=== PATIENT | female | born 1990 | race Asian ===

== ENCOUNTER 2017-12-11 00:37 | Emergency (ER) | payer OTHER ==
[~2017-12-11] VITALS: Ht 175.3 cm; Wt 101.6 kg
[2017-12-11 00:54] VITALS: BP 128/72; TEMP 98.2
== END 2017-12-11 01:11 | disposition home or self-care (01) ==
LOC: ED 00:37
DX: Z32.00 Encounter for pregnancy test, result unknown (principal)
CPT/HCPCS: 99281

== ENCOUNTER 2017-12-11 01:06 | Emergency (ER) | payer OTHER ==
[~2017-12-11] VITALS: Ht 175.3 cm; Wt 101.6 kg
[2017-12-11 01:25] VITALS: BP 118/57; TEMP 98.7
== END 2017-12-11 01:46 | disposition home or self-care (01) ==
LOC: ED 01:06
DX: Z32.00 Encounter for pregnancy test, result unknown (principal)
CPT/HCPCS: 99281

== ENCOUNTER 2017-12-26 05:04 | Emergency (ER) | payer OTHER | END 2017-12-26 06:25 | disposition home or self-care (01) | LOC: ED 05:04 | PROC: 2W3LX1Z Immobilization of Right Lower Extremity using Splint (ICD-10-PCS; principal; 2017-12-26) | DX: S80.01XA Contusion of right knee, initial encounter (principal); W17.89XA Other fall from one level to another, initial encounter; Y92.098 Other place in other non-institutional residence as the place of occurrence of the external cause | CPT/HCPCS: 81025; 96372; 99283; L1830 ==

== ENCOUNTER 2017-12-29 20:44 | Outpatient (CLI) | payer OTHER | END 2017-12-29 20:47 | disposition short-term general hospital (02) | LOC: AMB 20:44 | DX: R41.0 Disorientation, unspecified (principal); R45.1 Restlessness and agitation | CPT/HCPCS: A0425; A0427 ==

== ENCOUNTER 2017-12-29 20:53 | Emergency (ER) | payer OTHER ==
[~2017-12-29] VITALS: Ht 165.1 cm; Wt 75.8 kg
[2017-12-29 21:29] LABS: PLATELET COUNT 337 K/uL (152-353)
[2017-12-29 21:38] LABS: POTASSIUM 3.4 mmol/L (3.6-5.2)
[2017-12-29 22:36] VITALS: BP 130/69; TEMP 97.9
== END 2017-12-29 22:40 | disposition left against medical advice (07) ==
LOC: ED 20:53
DX: R45.1 Restlessness and agitation (principal); R41.0 Disorientation, unspecified; R00.0 Tachycardia, unspecified
CPT/HCPCS: 36415; 80053; 80307; 80320; 81000; 85027; 93005; 96361; 96374; 99284; J7120